=== PATIENT | female | born 1965 | race Caucasian/White ===

== ENCOUNTER 2019-12-28 09:06 | Outpatient (CLI) | payer OTHER, SELFPAY ==
--- NOTE | 2019-12-28 09:08 | ECG_ITS ---
Measurements Intervals [place] Rate: 69 P: 42 [place]: 189 QRS: 8 QRSD: 90 T: 10 QT: 367 QTc: 395 Interpretive Statements SINUS RHYTHM DELAYED PRECORDIAL R/S TRANSITION BASELINE ARTIFACT- I, II, III, AVR, AVL, AVF BORDERLINE ECG Electronically Signed On 12-28-2019 9:41:02 STRINGED INSTRUMENT TUNER by Daniel Lopez D.O.
[2019-12-28 09:49] LABS: Blood Urea Nitrogen 14 mg/dL (7-17); Calcium 9.5 mg/dL (8.4-10.2); Carbon Dioxide 31 mmol/L (22-30); Chloride 101 mmol/L (98-107); Estimated Glomerular Filt Rate > 60; Glucose 125 mg/dL (65-105); Potassium 4.5 mmol/L (3.4-5.0); Sodium 143 mmol/L (137-145)
== END 2019-12-28 09:07 | disposition home or self-care (01) ==
LOC: ANHSURGERY 09:08
PROVIDERS: Anesthesiology; PCP Family Medicine; Visit Provider Surgery
DX: Z01.812 Encounter for preprocedural laboratory examination (principal); Z51.81 Encounter for therapeutic drug level monitoring; I10 Essential (primary) hypertension; R94.31 Abnormal electrocardiogram [ECG] [EKG]
CPT/HCPCS: 36415; 80048; 93005

== ENCOUNTER 2020-01-07 00:18 | Day surgery (SDC) | payer OTHER, SELFPAY ==
[2019-12-27 13:57] VITALS: BMI 39.1
--- NOTE | 2020-01-07 06:13 | PM.HPGS ---
History of Present Illness History of Present Illness Consent: Risks, benefits, and alternatives have been discussed and questions answered. Patient agrees to proceed with procedure. Chief complaint: 10x10 subq mass right upper back Narrative: Vickie Singleton is a 54 year old female that presented to the office about one month ago at the request of Dr Herring for an evaluation of a back mass. Patient reports that she first noticed the back mass about a three years ago. Patient reports over the last year the mass is becoming larger and is starting to become pain especially when leaning up against like a back of a chair. Patient reports it is becoming larger and pain there area is starting to become bothersome. Patient denies any other masses, denies any drainage from the mass. Other medical history includes hypertension, high cholesterol, GERD and depression. Patient's surgical history includes a lap milad and gastric sleeve in 2014. She reports that she only is about 30 pounds news analyst now than what she was prior to the surgery. She denies any tobacco and alcohol use. Review of Systems Constitutional: Constitutional: Reports no additional constitutional complaints, Reports fatigue and Denies malaise Eyes: Eyes: Denies change in vision and Denies loss of vision ENT: Reports Normal hearing present, Denies change in voice, Denies dizziness, Denies hoarseness and Denies sore throat Cardiovascular: Cardiovascular: Denies chest pain, Denies leg edema and Denies dyspnea Respiratory: Respiratory: Denies cough, Denies dyspnea and Denies wheezing Gastrointestinal: Gastrointestinal: Denies hematochezia, Denies change in bowel habits and Denies heartburn Genitourinary: Genitourinary: Denies urinary frequency and Denies urinary incontinence Neurologic: Reports Normal hearing present, Denies confusion, Denies dizziness, Denies loss of vision, Denies memory loss and Denies seizure-like activity Psychiatric: Psychiatric: Denies confusion, Denies depression and Denies memory loss Endocrine: Endocrine: Denies cold intolerance and Reports fatigue Hematologic/Lymphatic: Hematologic/Lymphatic: Denies easy bleeding and Denies easy bruising Allergic/Immunologic: Allergic/Immunologic: Denies wheezing PMFSH Past Medical History Medical History (Updated 01/07/20 @ 06:22 by Hunter Cruz MD) Depression GERD (gastroesophageal reflux disease) High blood cholesterol HTN (hypertension) (Unknown) JESSE (obstructive sleep apnea) (Unknown) Surgical History Surgical History (Updated 01/06/20 @ 10:04 by Jeremie Arroyo DO) History of hysterectomy History of sleeve gastrectomy Hx laparoscopic cholecystectomy Family History Family History (Updated 12/07/19 @ 10:23 by Diana Evans) Grandparent Hypertension Cerebrovascular accident Carcinoma of colon Mother Family history of coronary artery disease Depression Family history of cardiovascular disease Family history of malignant neoplasm of thyroid Unknown Diabetes mellitus Heart disease Sibling Skin cancer Social History Social History Smoking status: Never smoker Alcohol intake: never Additional occupation/education comments: [employer] Home Medications and Allergies Home Medications Medication Instructions Recorded Confirmed Type pantoprazole 40 mg tablet,delayed 40 mg PO QAM 11/16/19 12/27/19 History release paroxetine HCl 40 mg tablet 40 mg PO DAILY 11/16/19 12/27/19 History propranolol 40 mg tablet 40 mg PO Q12H 11/16/19 12/27/19 History triamterene 37.5 0.5 tablet PO QAM #90 tablet 11/24/19 12/27/19 Rx mg-hydrochlorothiazide 25 mg tablet acetaminophen [Tylenol Arthritis 650 mg PO DAILY 12/27/19 12/27/19 History Pain] antiox.mv [id number] 3 cap PO DAILY 12/27/19 12/27/19 History [I-Caps] multivitamin 1 tablet PO DAILY 12/27/19 12/27/19 History Allergies
--- NOTE | 2020-01-07 06:40 | WPDANESEPPF ---
Anes - Initial Pre Proc Eval Procedure: Operation Date: 01/07/20 07:30 Proposed Procedures p Excision Large Subcutaneous Mass Right Upper Back - Hunter Cruz MD Date/Time: 01/07/20 06:40 Surgeon: Hunter Cruz MD Pre Op Diagnosis: 10x10 subq mass right upper back Patient Data Age: 54 Gender: F Height: 1.7 m Weight: 113.4 kg Allergies Allergy/AdvReac Type Severity Reaction Status Date / Time Penicillins AdvReac Unknown Yeast Verified 12/27/19 13:58 infections Tetanus Vaccines and Toxoid AdvReac Unknown temp/body Verified 12/27/19 13:58 aches/wierd feeling Home Medications Medication Instructions Recorded Confirmed Type pantoprazole 40 mg tablet,delayed 40 mg PO QAM 11/16/19 12/27/19 History release paroxetine HCl 40 mg tablet 40 mg PO DAILY 11/16/19 12/27/19 History propranolol 40 mg tablet 40 mg PO Q12H 11/16/19 12/27/19 History triamterene 37.5 0.5 tablet PO QAM #90 tablet 11/24/19 12/27/19 Rx mg-hydrochlorothiazide 25 mg tablet acetaminophen [Tylenol Arthritis 650 mg PO DAILY 12/27/19 12/27/19 History Pain] antiox.mv [id number] 3 cap PO DAILY 12/27/19 12/27/19 History [I-Caps] multivitamin 1 tablet PO DAILY 12/27/19 12/27/19 History Patient hx anesthesia problems: none Family hx anesthesia problems: none PMFSH Past Medical History Medical History (Updated 01/07/20 @ 06:22 by Hunter Cruz MD) Depression GERD (gastroesophageal reflux disease) High blood cholesterol HTN (hypertension) (Unknown) JESSE (obstructive sleep apnea) (Unknown) Surgical History Surgical History (Updated 01/06/20 @ 10:04 by Jeremie Arroyo DO) History of hysterectomy History of sleeve gastrectomy Hx laparoscopic cholecystectomy Family History Family History (Updated 12/07/19 @ 10:23 by Diana Evans) Grandparent Hypertension Cerebrovascular accident Carcinoma of colon Mother Family history of coronary artery disease Depression Family history of cardiovascular disease Family history of malignant neoplasm of thyroid Unknown Diabetes mellitus Heart disease Sibling Skin cancer Social History Social History Smoking status: Never smoker Alcohol intake: never Additional occupation/education comments: [employer] Final PreProcedure Day of Procedure 01/07/20 06:40 Patient weight: obese Heart: regular rate and rhythm Lungs: clear to auscultation and normal air movement Airway: Mallampati scale class 1 Neurological: alert and oriented Last oral intake: >/= 8 hours ASA classification: III Emergent: no Anesthetic plan: proceed Anesthesia type and monitoring: general GIVS and standard monitoring Informed Consent: The patient's anesthetic plan and its attendant risks and benefits were discussed with the patient/family/POA. Questions were solicited and answers provided to the satisfaction of the patient/family/POA.
[2020-01-07] MEDS: LACTATED RINGERS 1,000 ML 30 ML IV CONT ×2 (06:45→08:49)
[2020-01-07 07:01] VITALS: BP 115/72; PULSE 65; RESP 20; TEMP 36.7; O2SAT 97
[2020-01-07] MEDS: BUPIVACAINE/EPINEPHRINE 0.5% 10 ML VIAL 15 ML INFILTRATE (07:59)
[2020-01-07] MEDS: LIDO 2%/EPINEPHRINE 1:100,000 20 ML VIAL INFILTRATE (08:03)
--- NOTE | 2020-01-07 08:43 | P.OP_ITS ---
Procedure Note - Detailed Date of procedure: 01/07/20 Pre-op diagnosis: 10x10 subq mass right upper back Post-op diagnosis: same Procedure performed: Excision of large subcutaneous mass right upper back Description of procedure: The patient was placed in the left lateral decubitus position. After a surgical time out confirming patient and procedure the patient was prepped and draped in the usual sterile fashion. Local anesthetic was admin istered subcutaneously. I also infiltrated underneath the skin both cephalad and caudad in order to anesthetize the plane between the lipoma and the overlying subcutaneous fat and skin. The mass measured 10 x 9 cm. A transverse linear direct incision was made over the mass. I then elevated skin flaps angling with the curve of the mass lifting the skin cephalad and caudad as we went. Further local anesthetic using some 2% xylocaine with epinephrine was instilled along this plane also under the mass as we rotated it off the underlying muscular fascia. I excised this taking a thin margin c ircumferentially. It appeared that there was some element of a thin white capsule around most of this apparent lipoma. I dissected down to the deep subcutaneous tissues and then completely excised the lesion. Deep to the mass there appeared to be an attachment to a space between some of her superficial spinal muscles to sutures of 2 0 Vicryl were used to suture-ligate the vessels at the base of this apparent lipoma. Minimal bleeding occurred during the excision. Bleeding was controlled with electrocautery. Because there was a pretty low large space since the thickness of this lipoma probably was also about [address] to [address] a drain. A 10 [place] round Romaine drain was brought through a stab wound which was made just lateral to the transverse incision. A 3 0 Ethilon suture was used to suture the drain in place. The drain was curled into the space where the lipoma had been. This was placed to bulb suction at the end of the procedure. A split 2 x 2 and Tegaderm were used to dress the drain and closure was otherwise as below. The wound was closed in two layers. An un-dyed 2-0 vicryl deep dermal and then a 3-0 Monocryl running subcuticular closure was completed. Surgical glue applied as dressing. Patient tolerated this well. Anesthesia: local (20 cc of 0.5% Marcaine with epinephrine. Also approximately 15 cc of 2% xylocaine with epinephrine) and other (G IV S) Surgeon: Hunter Cruz MD Seam Stayer: EILEEN Smith, OR 1st assist Estimated blood loss (mL): 10 Drains: Yes (10 [place] round Romaine drain to the subcutaneous space right upper back) Packing: No Pathology: yes (Subcutaneous mass, suspected lipoma) Complications: No immediate complications Condition: stable Disposition: same day Findings: There was a large somewhat lobulated soft tissue mass in the subcutaneous space densely adhered to the underlying fascia.
[2020-01-07 08:49] VITALS: BP 116/74; PULSE 66; RESP 18; O2SAT 99
[2020-01-07 09:15] VITALS: BP 117/72; PULSE 52; RESP 14
--- NOTE | 2020-01-07 09:31 | SUR.PHASEII ---
0900 dr barrientos here and talked to pt.
[2020-01-07 09:50] VITALS: BP 117/70; PULSE 59; RESP 14
== END 2020-01-07 10:00 | disposition home or self-care (01) ==
PROVIDERS: PCP Family Medicine; Visit Provider Surgery
PROC: (CPT 21931; principal; 2020-01-07 07:30)
DX: D17.1 Benign lipomatous neoplasm of skin and subcutaneous tissue of trunk (principal); I10 Essential (primary) hypertension; E78.00 Pure hypercholesterolemia, unspecified; G47.33 Obstructive sleep apnea (adult) (pediatric); K21.9 Gastro-esophageal reflux disease without esophagitis; F32.9 Major depressive disorder, single episode, unspecified; Z98.84 Bariatric surgery status; E66.9 Obesity, unspecified; Z68.39 Body mass index [BMI] 39.0-39.9, adult
CPT/HCPCS: 21931; 88304; A9270; J1100; J2250; J2405; J2704; J3010; J7120